=== PATIENT | female | born 1965 | race Caucasian/White ===

== ENCOUNTER 2021-06-18 10:00 | Outpatient (CLI) | payer OTHER, SELFPAY ==
[~2021-06-18] VITALS: Ht 165.1 cm; Wt 63.5 kg
[2021-06-21 06:51] VITALS: BP_SYST 122
[2021-06-21] MEDS ORDERED: CEFAZOLIN SOD 1 GM in D5W 50 ML IV ONE (07:00)
[2021-06-21 08:04] LABS: INR 2.1 (0.8-1.2); PROTHROMBIN TIME 21.3 SECS (9.5-12.5)
== END 2021-06-18 11:00 | disposition home or self-care (01) ==
LOC: SLB 10:00 → SDS 06-21 06:08 → SMU 06-21 06:14 → EDSTATUS 06-21 07:30 → SDS 06-21 08:10 → SMU 06-21 08:10
PROVIDERS: ATTEND Colon & Rectal Surgery
DX: Z01.818 Encounter for other preprocedural examination (principal); K80.10 Calculus of gallbladder with chronic cholecystitis without obstruction; Z20.822 Contact with and (suspected) exposure to COVID-19
CPT/HCPCS: 36415; 85610-TC; 85730-TC; J0690; J7060; Q9967; U0003

== ENCOUNTER 2021-06-28 10:00 | Outpatient (CLI) | payer OTHER, SELFPAY ==
[2021-06-28 06:20] VITALS: BP_SYST 156
[2021-06-28 07:36] LABS: INR 1.8 (0.8-1.2); PROTHROMBIN TIME 18.7 SECS (9.5-12.5)
[~2021-06-28 10:00] MED LIST: CEFAZOLIN 1 GM IVPB PREMIX 0 ML IV ONE
== END 2021-06-28 13:00 | disposition home or self-care (01) ==
LOC: SLB 10:00
PROVIDERS: ATTEND Colon & Rectal Surgery
DX: Z01.812 Encounter for preprocedural laboratory examination (principal); Z01.818 Encounter for other preprocedural examination; K80.10 Calculus of gallbladder with chronic cholecystitis without obstruction; Z79.01 Long term (current) use of anticoagulants; Z20.822 Contact with and (suspected) exposure to COVID-19
CPT/HCPCS: 36415; 85610; 85730; U0003; J0690

== ENCOUNTER 2021-07-19 07:29 | Day surgery (SDC) | payer OTHER, SELFPAY ==
[~2021-07-19] VITALS: Ht 165.1 cm; Wt 63.5 kg
[~2021-07-19 07:29] MED LIST changes: -CEFAZOLIN 1 GM IVPB PREMIX 0 ML IV ONE; +CEFAZOLIN SOD 1 GM in D5W 50 ML IV ONE
[2021-07-19] MEDS ORDERED: MIDAZOLAM HCL 5 MG/5 ML VIAL IVP ONE (09:30)
[2021-07-19] MEDS ORDERED: ROCURONIUM BROMIDE 10 MG/ML (ZEMURON) IV ONE (09:30)
[2021-07-19] MEDS ORDERED: DEXAMETHASONE SOD PHOSPHATE 4 MG/ML VIAL IVP ONE (09:30)
[2021-07-19] MEDS ORDERED: LIDOCAINE 2%, 20 ML MDV INJ ONE (09:30)
[2021-07-19] MEDS ORDERED: DESFLURANE 15 MIN GAS INH ONE (09:30)
[2021-07-19] MEDS ORDERED: SUGAMMADEX SODIUM 200 MG/2 ML VIAL IV ONE (09:30)
[2021-07-19] MEDS ORDERED: LR 1,000 ML IV.SOLN IV ONE (09:30)
[2021-07-19] MEDS ORDERED: fentaNYL CITRATE/PF 100 MCG/2 ML AMP IVP ONE (09:30)
[2021-07-19] MEDS ORDERED: BUPIVACAINE /PF 0.5% 30 ML VIAL INJ ONE (09:30)
[2021-07-19] MEDS ORDERED: PROPOFOL 200MG/ 20ML VIAL (DIPRIVAN) IV ONE (09:30)
[2021-07-19] MEDS ORDERED: ACETAMINOPHEN I.V. 1000 MG 100 ML IV ONE (09:45)
[2021-07-19] MEDS ORDERED: MEPERIDINE HCL/PF 25 MG/ML DISP.SYRIN IVP PRN (10:15)
[2021-07-19] MEDS ORDERED: METOCLOPRAMIDE HCL 10 MG/2 ML VIAL IVP PRN (10:15)
[2021-07-19] MEDS ORDERED: HYDROmorphone 1 MG/ML INJ. CARTRIDGE IVP PRN ×2 (10:15)
[2021-07-19] MEDS ORDERED: LABETALOL 100 MG/ 20ML VIAL IVP PRN (10:15)
[2021-07-19] MEDS ORDERED: hydrALAZINE HCL 20 MG/ML VIAL IVP PRN (10:15)
[2021-07-19] MEDS ORDERED: MIDAZOLAM HCL 2 MG/2 ML VIAL (VERSED) IVP PRN (10:15)
[2021-07-19] MEDS ORDERED: LR 1,000 ML IV SCH (10:15)
[2021-07-19] MEDS ORDERED: D5/0.45 NS 1,000 ML IV SCH (10:45)
[2021-07-19] MEDS ORDERED: METOCLOPRAMIDE HCL 10 MG/2 ML VIAL ONE (12:56)
[2021-07-19 16:46] VITALS: BP_SYST 148
== END 2021-07-19 14:10 | disposition home or self-care (01) ==
LOC: SDS 07:29 → SMU 08:01 → SDS 14:10
PROVIDERS: ATTEND Colon & Rectal Surgery
DX: K80.10 Calculus of gallbladder with chronic cholecystitis without obstruction (principal); I10 Essential (primary) hypertension; Z86.73 Personal history of transient ischemic attack (TIA), and cerebral infarction without residual deficits; M32.9 Systemic lupus erythematosus, unspecified; Z79.899 Other long term (current) drug therapy; Z20.822 Contact with and (suspected) exposure to COVID-19
CPT/HCPCS: 47563; 74300; 88304; C1727; C1758; C9399; J0131; J0690; J1100; J2001; J2250; J2704; J2765; J3010; J3490; J7060; J7120; Q9967; U0003; 76000